=== PATIENT | female | born 1970 | race Caucasian/White ===

== ENCOUNTER 2019-08-04 13:33 | Emergency (ER) | payer BC ==
[~2019-08-04] VITALS: Ht 167.6 cm; Wt 70.5 kg
[2019-08-04 13:37] VITALS: BP 144/74
== END 2019-08-04 13:53 | disposition left against medical advice (07) ==
LOC: EMS 13:35
DX: R21 Rash and other nonspecific skin eruption (principal); Z53.21 Procedure and treatment not carried out due to patient leaving prior to being seen by health care provider